=== PATIENT | male | born 1965 | race Caucasian/White ===

== ENCOUNTER 2019-12-22 22:27 | Inpatient (IN) | payer OTHER ==
[~2019-12-22] VITALS: Ht 175.3 cm; Wt 86.2 kg
--- NOTE | 2019-12-22 22:38 | NUR ---
PT AAOX4. SINHALA SPEAKING. [id number] FROM HOME FOR RLQ ABD PAIN X THIS AM 5/10, NON RADIATING. PLACED ON MONITOR AND PULSE OX. VSS.
--- NOTE | 2019-12-22 22:42 | NUR ---
RESIDENT INSPECTOR AT BEDSIDE FOR LABS AND URINE
[2019-12-22] MEDS ORDERED: ONDANSETRON HCL/PF 4 MG/2 ML VIAL ONE (22:55)
[2019-12-22] MEDS ORDERED: MORPHINE SULFATE INJ 4 MG/ML DISP.SYRIN ONE (22:56)
[2019-12-22] MEDS ORDERED: IV NS 0.9% 1,000 ML BAG IV ONE (23:00)
[2019-12-22] MEDS ORDERED: ONDANSETRON HCL/PF 4 MG/2 ML VIAL IVP ONE (23:00)
[2019-12-22] MEDS ORDERED: MORPHINE SULFATE INJ 2 MG/ML DISP.SYRIN IV ONE (23:00)
[2019-12-22 23:01] LABS: BASOPHILS # (AUTO) 0.1 /CMM (0.0-0.2); BASOPHILS % (AUTO) 0.6 % (0.0-2.0); EOSINOPHILS % (AUTO) 0.3 % (0.0-6.0); HEMATOCRIT 42 % (39-51); LYMPHOCYTES # (AUTO) 2.1 /CMM (0.8-4.8); LYMPHOCYTES % (AUTO) 18.2 % (20.0-44.0); MEAN CORPUSCULAR HGB CONC 33 g/dl (31.0-36.0); MEAN CORPUSCULAR VOLUME 94 fL (80-96); MONOCYTES # (AUTO) 0.3 /CMM (0.1-1.30); MONOCYTES % (AUTO) 2.9 % (2.0-12.0); NEUTROPHILS # (AUTO) 9.2 /CMM (1.8-8.9); PLATELET COUNT (AUTO) 267 /CMM (150-450); RED BLOOD CELL COUNT(AUTO) 4.48 MIL/uL (4.5-6.0); WHITE BLOOD COUNT (AUTO) 11.8 K/uL (4.3-11.0)
[2019-12-22 23:04] LABS: APPEARANCE,URINE Clear (CLEAR); BILIRUBIN,URINE Negative (NEGATIVE); BLOOD, URINE Negative Ery/uL (NEGATIVE); COLOR,URINE Yellow (YELLOW); KETONES,URINE 15 (NEGATIVE); LEUKOCYTE ESTERASE ,URINE Negative (NEGATIVE); NITRITE, URINE Negative (NEGATIVE); PROTEIN,URINE 30 mg/dl (NEGATIVE); UGLUCOSE 500 MG/DL mg/dL (NEGATIVE)
[2019-12-22 23:13] LABS: CALCIUM, SERUM 9.4 mg/dL (8.5-10.1); CARBON DIOXIDE 27 mmol/L (21-32); CHLORIDE 102 mmol/L (98-107); CREATININE 1.1 mg/dL (0.6-1.3); GLUCOSE 198 mg/dL (74-106); POTASSIUM 3.7 mmol/L (3.5-5.1); SODIUM SERUM 140 mmol/L (136-145); UREA NITROGEN, BLOOD 16 mg/dL (7-18)
[2019-12-22 23:18] LABS: BACTERIA,URINE Rare /HPF (None Seen); HYALINE CASTS, URINE Moderate /LPF (None Seen); MUCUS,URINE Many /LPF (None Seen); RBC,URINE NONE SEEN /HPF (0-2); WBC,URINE NONE SEEN /HPF (0-3)
[2019-12-22 23:22] LABS: ALANINE AMINOTRANSFERASE 41 U/L (12-78); ALKALINE PHOSPHATASE 71 U/L (46-116); ASPARTATE AMINOTRANSFERASE 18 U/L (15-37); BILIRUBIN,DIRECT 0.2 mg/dL (0.0-0.2); BILIRUBIN,TOTAL 0.5 mg/dL (0.2-1.0); LIPASE 70 U/L (73-393); TOTAL PROTEIN, SERUM 7.6 g/dL (6.4-8.2)
--- NOTE | 2019-12-22 23:26 | NUR ---
BROUGHT TO CT
--- NOTE | 2019-12-23 00:08 | NUR ---
DR. DANIELSON SPEAKING WITH DR. NUÑEZ
[2019-12-23] MEDS ORDERED: PIPERACILLIN /TAZOBACTAM 3.375 G VIAL IV ONE (00:10)
[2019-12-23] MEDS ORDERED: PIPERACILLIN /TAZOBACTAM 3.375 G in IV D5W 50 ML IV ONE (00:30)
--- NOTE | 2019-12-23 00:35 | NUR ---
SPEAKING TO REGARDING PT STAYING FOR APPENDICITIS
[2019-12-23] MEDS ORDERED: SITA1TAB6 PO ×2 (00:58→02:53)
[2019-12-23] MEDS ORDERED: ENAL5TAB PO (01:00)
[2019-12-23] MEDS ORDERED: MELO-105 PO (01:00)
--- NOTE | 2019-12-23 01:37 | NUR ---
BED ASSIGNMENT 320-1
--- NOTE | 2019-12-23 02:39 | NUR ---
REPORT GIVEN TO SHALOM العراقي FOR SERVANDO
[2019-12-23 02:50] VITALS: BP 151/84
--- NOTE | 2019-12-23 02:53 | NUR ---
SPOKE TO PATIENT'S . PT TAKES "JAUNMET 15MG 2000MG" UNKNOWN TIME
[2019-12-23] MEDS ORDERED: ONDANSETRON HCL/PF 4 MG/2 ML VIAL IV PRN (03:30)
[2019-12-23] MEDS ORDERED: HYDROCODONE/APAP 5/325MG 1 EACH TABLET PO PRN (03:30)
[2019-12-23] MEDS ORDERED: Potassium Chloride 10 MEQ in IV D5/0.45 NACL 1,000 ML IV PRN (03:30)
[2019-12-23] MEDS ORDERED: ACETAMINOPHEN 325 MG TABLET PO PRN (03:30)
[2019-12-23] MEDS ORDERED: HYDROMORPHONE 1 MG/1 ML DISP.SYRIN IV PRN ×2 (03:30→17:00)
--- NOTE | 2019-12-23 04:00 | NUR ---
MS JOURNEYMAN ELECTRICIAN NOTE: Received report from ED nurse, Wang. Patient was transferred to the unit via wheelchair. Patient AOx4. On room air; O2 Sat 95%. No SOB, breathing unlabored and equal. Patient's skin is intact. Noted IV access on right AC, 18 gauge. IV access flushes well, patent, no redness, or infiltration. Patient ambulates well, gait WNL. Oriented patient to room and educated patient on how to use the call light. Safety precaution in place, bed is locked, side rails x2 are up, alarm is on, and call light is within reach.
[2019-12-23] MEDS ORDERED: Potassium Chloride 20 MEQ in IV D5/0.45 NACL 1,000 ML IV PRN (06:30)
--- NOTE | 2019-12-23 06:50 | NUR ---
MS RN CLOSING NOTE: Patient in bed sleeping comfortably but easily arousable. Showed no signs of pain or distress. Breathing well on room air. No SOB. Breathing unlabored and equal. Will endorse to next shift.
--- NOTE | 2019-12-23 07:03 | NUR ---
MS RN NOTES RECEIVED PT IN BED AWAKE AT THIS TIME. A/O X4. SOMALI AND GUYANESE SPEAKING. PT ABLE TO MAKE NEEDS KNOWN. NO SOB NOTED. RESPIRATIONS EVEN AND UNLABORED. NO S/S OF ANY ACUTE DISTRESS NOTED. NO C/O PAIN AT THIS TIME. IV ACCESS IN RAC G#18, INTACT AND PATENT. SAFETY PRECAUTIONS IN PLACE. BED IN LOWEST LOCKED POSITION, SIDE RAILS UP X2. HOB ELEVATED TO SEMI FOWLERS POSITION, CALL LIGHT WITHIN REACH. WILL CONTINUE TO MONITOR
--- NOTE | 2019-12-23 07:52 | NUR ---
RECEIVED TELEPHONE ORDERS FROM DR NUÑEZ. PER DR NUÑEZ, PT IS SCHEDULED FOR LAPAROSCOPIC APPENDECTOMY POSSIBLE OPEN EXPLORATORY LAPAROTOMY. ORDERS READ BACK AND CARRIED OUT. CONSENT FOR PROCEDURE, BLOOD TRANSFUSION AND ANESTHESIA SIGNED BY PATIENT AND FILED IN CHART. WILL CONTINUE TO MONITOR
[2019-12-23] MEDS ORDERED: FENO145T21 PO (07:58)
[2019-12-23] MEDS ORDERED: ASPI-1152 PO (07:58)
[2019-12-23] MEDS ORDERED: ROSU40TA23 PO (07:58)
[2019-12-23 08:00] VITALS: BP 104/50
[2019-12-23] MEDS ORDERED: DEXTROSE 50%-WATER 50 ML DISP.SYRIN IV PRN (08:00)
[2019-12-23] MEDS ORDERED: CLONIDINE HCL 0.1 MG TABLET PO PRN (08:00)
[2019-12-23] MEDS ORDERED: PIPERACILLIN /TAZOBACTAM 3.375 G in IV D5W 50 ML IV SCH (08:00)
[2019-12-23] MEDS ORDERED: IV NS 0.9% 500 ML IV ONE (08:00)
[2019-12-23] MEDS: MELOXICAM 7.5 MG TABLET PO SCH ×2 (09:00→09:47)
[2019-12-23] MEDS: LINAGLIPTIN 5 MG TABLET PO SCH ×2 (09:00→09:47)
[2019-12-23] MEDS: NICOTINE PATCH (21MG) 21 MG PATCH.TD24 TD SCH ×2 (09:00→09:47)
[2019-12-23] MEDS: ENALAPRIL MALEATE (5 MG) 5 MG TABLET PO SCH (09:00)
--- NOTE | 2019-12-23 09:00 | NUR ---
PT IS ON NPO STATUS DUE TO SCHEDULED SURGERY. MOBIC 7.5MG PO DAILY, TRADJENTA 5MG PO DAILY AND NICODERM 21MG PATCH TP DAILY RETURNED. WILL CONTINUE TO MONITOR
[2019-12-23] MEDS ORDERED: PIPERACILLIN /TAZOBACTAM 3.375 G in IV D5W 100 ML IV SCH (10:00)
[2019-12-23] MEDS ORDERED: LIDOCAINE 1% INJ 50 ML MDV IJ ONE (11:57)
[2019-12-23] MEDS ORDERED: BUPIVACAINE MPF 0.5% W/EPI INJ 30 ML VIAL ONE (11:57)
[2019-12-23] MEDS: INSULIN REGULAR, HUMAN 100 UNIT/ML 3 ML VIAL SQ PRN (12:13)
[2019-12-23] MEDS: BLOOD SUGAR DIAGNOSTIC 1 EACH STRIP VI SCH ×3 (12:14→21:22)
--- NOTE | 2019-12-23 13:02 | NUR ---
PT TRANSPORTED OUT OF UNIT FOR LAPAROSCOPIC APPENDECTOMY POSSIBLE OPEN EXPLORATORY LAPAROTOMY PROCEDURE AT THIS TIME. WILL CONTINUE WITH PLAN OF CARE.
[2019-12-23] MEDS ORDERED: HYDROCODONE/APAP 10/325MG 1 EA TABLET PO PRN (17:00)
--- NOTE | 2019-12-23 17:00 | NUR ---
PATIENT TRANSPORTED BY BED TO UNIT AT THIS TIME FROM APPENDECTOMY AND LYSIS OF ADHESION PROCEDURE. POST SURGERY VITAL SIGNS, BP 112/56 HR 86, RR 18, T 98.8, SATURATION 96%. PER OR NURSE, PT HAS THREE SIDED WITH SKIN HANNAH WITH GAUZE SECURE WITH TAPE. SURGERY SIDE IN CLEAN AND DRY, NO SIGN OF BLEEDING NOTED. WILL CONTINUE TO MONITOR
[2019-12-23] MEDS: *INSULIN REGULAR(HUMULIN R)HUM 100 UNIT/ML VIAL SQ PRN ×2 (17:20→21:36)
[2019-12-23] MEDS: ZOSYN IVPB 3.375 G in IV D5W 50ml IV SCH ×2 (18:55→23:07)
--- NOTE | 2019-12-23 19:08 | NUR ---
MS RN CLOSING NOTES PT AWAKE IN BED AT THIS TIME. PT REMAINED STABLE THROUGHOUT SHIFT. PT KEPT CLEAN AND DRY. ALL CARE, NEEDS, MEDICATIONS AND WOUND TREATMENT ADMINISTERED ANTICIPATED PER ORDER. PT REPOSITIONED Q2HRS, PRN AND PER PROTOCOL. ASPIRATION AND SAFETY PRECAUTIONS IN PLACE AND MAINTAINED AT ALL TIMES. BED IN LOWEST LOCKED POSITION, SIDE RAILS UP X2, HOB ELEVATED TO SEMI FOWLERS POSITION, CALL LIGHT WITHIN REACH. WILL ENDORSE TO [employer]ER AUTOMOTIVE NURSE FOR SERVANDO
--- NOTE | 2019-12-23 19:35 | NUR ---
MS RN NOTES PATIENT IS LAYING IN BED. A/O X4. ON RA, NO SOB/ ACUTE RESPIRATORY DISTRESS NOTED. IV IN R AC#18G IS PATENT AND INTACT. APPEARS COMFORTABLE/ NO COMPLAINTS OF PAIN AT THE MOMENT. BED IS IN LOWEST LOCKED POSITION WITH SIDE RAILS UP X2, SEMI FOWLERS. CALL LIGHT IS WITHIN REACH. WILL CONTINUE TO MONITOR.
[2019-12-23 20:00] VITALS: BP 112/84
--- NOTE | 2019-12-23 20:28 | NUR ---
ADVANCED PT'S DIET FROM NPO TO CLEAR LIQUIDS POST SURGERY PER DOCTOR NUÑEZ'S ORDER. WILL CONTINUE TO MONITOR
[2019-12-24] MEDS: IV LR 1000 ML 1,000 ML IV PRN (03:16)
[2019-12-24] MEDS: ZOSYN IVPB 3.375 G in IV D5W 50ml IV SCH ×3 (05:12→17:28)
--- NOTE | 2019-12-24 06:23 | NUR ---
MS RN CLOSE NOTES PATIENT IS LAYING IN BED. A/O X4. ON RA, NO SOB/ ACUTE RESPIRATORY DISTRESS NOTED. IV IN R AC #18G IS PATENT AND INTACT RUNNING LACTATED RINGERS @ 150MLS/HR. ALL DUE ANTIBIOTICS GIVEN. ALL ACCUCHECKS DONE. PATIENT IS AMBULATORY. APPEARS COMFORTABLE/ NO COMPLAINTS OF PAIN AT THE MOMENT. BED IS IN LOWEST LOCKED POSITION WITH SIDE RAILS UP X2, SEMI FOWLERS. CALL LIGHT IS WITHIN REACH. WILL ENDORSE TO AM NURSE.
[2019-12-24] MEDS: BLOOD SUGAR DIAGNOSTIC 1 EACH STRIP VI SCH ×4 (06:30→21:26)
[2019-12-24] MEDS: INSULIN REGULAR, HUMAN 100 UNIT/ML 3 ML VIAL SQ PRN ×3 (06:31→17:33)
[2019-12-24 06:42] LABS: CALCIUM, SERUM 8.7 mg/dL (8.5-10.1); CREATININE 0.9 mg/dL (0.6-1.3); POTASSIUM 3.7 mmol/L (3.5-5.1)
[2019-12-24 07:01] LABS: BASOPHILS % (AUTO) 0.1 % (0.0-2.0); HEMATOCRIT 35 % (39-51); HEMOGLOBIN 11.4 g/dL (13.5-17.5); LYMPHOCYTES # (AUTO) 2.1 /CMM (0.8-4.8); LYMPHOCYTES % (AUTO) 14.1 % (20.0-44.0); MEAN CORPUSCULAR HGB CONC 33 g/dl (31.0-36.0); MEAN CORPUSCULAR VOLUME 93 fL (80-96); MONOCYTES # (AUTO) 0.7 /CMM (0.1-1.30); MONOCYTES % (AUTO) 4.8 % (2.0-12.0); NEUTROPHILS # (AUTO) 12.1 /CMM (1.8-8.9); PLATELET COUNT (AUTO) 201 /CMM (150-450); RED BLOOD CELL COUNT(AUTO) 3.75 MIL/uL (4.5-6.0); WHITE BLOOD COUNT (AUTO) 14.9 K/uL (4.3-11.0)
--- NOTE | 2019-12-24 07:30 | NUR ---
PATIENT RECEIVED RESTING COMFORTABLY IN BED. NO S/S OR C/O PAIN OR DISTRESS NOTED. SIDERAILS UP X2, CALL LIGHT LEFT WITHIN REACH. WILL CONTINUE PLAN OF CARE.
[2019-12-24 08:00] VITALS: BP 113/71
[2019-12-24] MEDS: NICOTINE PATCH (21MG) 21 MG PATCH.TD24 TD SCH (08:15)
[2019-12-24] MEDS: LINAGLIPTIN 5 MG TABLET PO SCH (08:15)
[2019-12-24] MEDS: ENALAPRIL MALEATE (5 MG) 5 MG TABLET PO SCH (08:16)
[2019-12-24] MEDS: PANTOPRAZOLE 40 MG TABLET.DR PO SCH (08:16)
[2019-12-24] MEDS: MELOXICAM 7.5 MG TABLET PO SCH (08:17)
[2019-12-24] MEDS: METOCLOPRAMIDE HCL 10 MG/2 ML VIAL IV SCH ×3 (10:18→20:05)
[2019-12-24 16:00] VITALS: BP 118/64
--- NOTE | 2019-12-24 18:44 | NUR ---
CHANGE OF SHIFT REPORT PT RESTING COMFORTABLY IN BED. NO S/S OR C/O PAIN OR DISTRESS NOTED. SIDE RAILS UP X2, CALL LIGHT LEFT WITHIN REACH. PT KEPT CLEAN, DRY, AND COMFORTABLE. NO SIGNIFICANT CHANGES SINCE PREVIOUS SHIFT. WILL GIVE REPORT TO JULIANO العراقي.
--- NOTE | 2019-12-24 19:30 | NUR ---
MS RN OPEN NOTES PATIENT IS SITTING IN BED. A/O X4. ON RA, NO SOB/ ACUTE RESPIRATORY DISTRESS NOTED. APPEARS COMFORTABLE/ NO COMPLAINTS OF PAIN AT THE MOMENT. BED IS IN LOWEST LOCKED POSITION WITH ISDE RAILS UP X2 SEMIFOWLERS. CALL LIGHT IS WITHIN REACH. WILL CONTINUE TO MONITOR.
[2019-12-24 20:21] VITALS: BP 127/73
[2019-12-25] MEDS: ZOSYN IVPB 3.375 G in IV D5W 50ml IV SCH ×3 (00:16→12:40)
[2019-12-25] MEDS: METOCLOPRAMIDE HCL 10 MG/2 ML VIAL IV SCH ×3 (02:35→15:15)
[2019-12-25] MEDS: IV LR 1000 ML 1,000 ML IV PRN (05:13)
--- NOTE | 2019-12-25 06:15 | NUR ---
MS RN CLOSE NOTES PATIENT IS LAYING IN BED. A/O X4. STABLE ON RA, NO SOB/ ACUTE RESPIRATORY DISTRESS NOTED. IV IN R AC #18G IS PATENT AND INTACT RUNNING LR @ 75MLS/HR. PATIENT IS AMBULATORY. ALL DUE ANTIBIOTICS GIVEN. ALL ACCUCHECKS DONE. APPEARS COMFORTABLE/ NO COMPLAINTS OF PAIN AT THE MOMENT. BED IS IN LOWEST LOCKED POSITION WITH SIDE RAILS UP X2, SEMI FOWLERS. CALL LIGHT IS WITHIN REACH. WILL ENDORSE TO AM NURSE.
[2019-12-25] MEDS: BLOOD SUGAR DIAGNOSTIC 1 EACH STRIP VI SCH ×3 (06:30→17:48)
[2019-12-25] MEDS: INSULIN REGULAR, HUMAN 100 UNIT/ML 3 ML VIAL SQ PRN ×3 (06:32→17:47)
[2019-12-25 07:14] LABS: BASOPHILS % (AUTO) 0.3 % (0.0-2.0); EOSINOPHILS % (AUTO) 0.3 % (0.0-6.0); HEMATOCRIT 38 % (39-51); HEMOGLOBIN 12.3 g/dL (13.5-17.5); LYMPHOCYTES # (AUTO) 1.5 /CMM (0.8-4.8); LYMPHOCYTES % (AUTO) 12.2 % (20.0-44.0); MEAN CORPUSCULAR HGB CONC 33 g/dl (31.0-36.0); MEAN CORPUSCULAR VOLUME 92 fL (80-96); MONOCYTES # (AUTO) 0.4 /CMM (0.1-1.30); MONOCYTES % (AUTO) 3.5 % (2.0-12.0); NEUTROPHILS # (AUTO) 10.5 /CMM (1.8-8.9); NEUTROPHILS % (AUTO) 83.7 % (43.0-81.0); PLATELET COUNT (AUTO) 245 /CMM (150-450); RED BLOOD CELL COUNT(AUTO) 4.09 MIL/uL (4.5-6.0); WHITE BLOOD COUNT (AUTO) 12.6 K/uL (4.3-11.0)
--- NOTE | 2019-12-25 07:30 | NUR ---
RN OPEN NOTES PATIENT IS A/O X 4. CALM AND COOPERATIVE WITH NO SIGNS OFDISTRESS IN ROOM AIR. NO COMPLAINTS OF PAIN AT THE MOMENT. SAFETY MEASURES ARE APPLIED, BED IS IN LOWEST LOCKED POSITION WITH SIDE RAILS UP X2 FOR SAFETY. CALL LIGHT IS WITHIN REACH. WILL CONTINUE TO MONITOR.
[2019-12-25 07:51] LABS: CALCIUM, SERUM 8.9 mg/dL (8.5-10.1); CREATININE 0.8 mg/dL (0.6-1.3); MAGNESIUM 2.2 mg/dL (1.8-2.4); POTASSIUM 3.4 mmol/L (3.5-5.1)
[2019-12-25 08:00] VITALS: BP 128/76
[2019-12-25] MEDS: ENALAPRIL MALEATE (5 MG) 5 MG TABLET PO SCH (08:37)
[2019-12-25] MEDS: NICOTINE PATCH (21MG) 21 MG PATCH.TD24 TD SCH (08:37)
[2019-12-25] MEDS: LINAGLIPTIN 5 MG TABLET PO SCH (08:37)
[2019-12-25] MEDS: PANTOPRAZOLE 40 MG TABLET.DR PO SCH (08:37)
[2019-12-25] MEDS: MELOXICAM 7.5 MG TABLET PO SCH (08:41)
[2019-12-25] MEDS ORDERED: AMOX-430 PO (08:57)
[2019-12-25] MEDS ORDERED: HYDR-4384 PO (08:57)
[2019-12-25] MEDS ORDERED: POTASSIUM CHLORIDE 20 MEQ TAB.PRT.SR PO ONE (10:30)
[2019-12-25 16:00] VITALS: BP 131/77
--- NOTE | 2019-12-25 19:45 | NUR ---
DC NOTES PATIENT IS STABLE AND IMPROVED. EDUCATED AND INFORMED PATIENT TO CONTINUE WITH MEDICATION, FOLLOW UP WITH PHYSICIAN AND RETURN TO THE ER IN CASE OF AN EMERGENCY. VERBALIZE UNDERSTANDING. LIST OF BELONGINGS WERE VERIFIED AND SIGNED BY PATIENT. PHOTOS OF SKIN WERE TAKEN FOR DISCHARGE. PATIENT WAS ABLE TO AMBULATE WITH A STEADY GAIT WITH NO COMPLICATIONS PICKED UP BY . Addendum: 12/25/19 at 2025 by ROBE BRICE RN DC NOTES PATIENT IS STABLE AND IMPROVED. EDUCATED AND INFORMED PATIENT TO CONTINUE WITH MEDICATION, FOLLOW UP WITH PHYSICIAN AND RETURN TO THE ER IN CASE OF AN EMERGENCY. VERBALIZE UNDERSTANDING. LIST OF BELONGINGS WERE VERIFIED AND SIGNED BY PATIENT. PHOTOS OF SKIN WERE TAKEN FOR DISCHARGE. COMPLAINT OF NO PAIN. IV WAS REMOVED AND PUT PRESSURE OVER IT AND NO SIGNS OF BLEEDING ON THE IV REMOVAL AND SECURED WITH TAPE. PATIENT WAS WALKED TO THE [facility] BY BELL CLERK NURSE SHALOM.PATIENT WAS ABLE TO AMBULATE WITH A STEADY GAIT WITH NO COMPLICATIONS PICKED UP BY .
[2019-12-25] MEDS ORDERED: CIPROFLOXACIN HCL 500 MG TABLET PO SCH (21:00)
[2019-12-25] MEDS ORDERED: METRONIDAZOLE 500 MG TABLET PO SCH (21:00)
== END 2019-12-25 19:34 | disposition home or self-care (01) | DRG 233 ==
LOC: ER 22:35 → MED 12-23 01:48
PROVIDERS: ADMIT Internal Medicine; ATTEND Internal Medicine
PROC: 0DTJ4ZZ Resection of Appendix, Percutaneous Endoscopic Approach (ICD-10-PCS; principal; 2019-12-23)
DX: K35.33 Acute appendicitis with perforation, localized peritonitis, and gangrene, with abscess (principal); E11.9 Type 2 diabetes mellitus without complications; I10 Essential (primary) hypertension; K66.0 Peritoneal adhesions (postprocedural) (postinfection); Z79.82 Long term (current) use of aspirin; Z79.84 Long term (current) use of oral hypoglycemic drugs; Z83.3 Family history of diabetes mellitus; Z82.49 Family history of ischemic heart disease and other diseases of the circulatory system; I70.0 Atherosclerosis of aorta; Z72.0 Tobacco use; K76.0 Fatty (change of) liver, not elsewhere classified; K40.20 Bilateral inguinal hernia, without obstruction or gangrene, not specified as recurrent; K56.7 Ileus, unspecified
CPT/HCPCS: 36415; 71045-TC; 80048-TC; 80076-TC; 81000-TC; 82962-TC; 83690-TC; 83735-TC; 84484-TC; 85025-TC; 85730-TC; 86850-TC; 87070-TC; 87075-TC; 87081-TC; 87186-TC; 88304-TC; G0378; J1100; J1815; J1885; J2270; J2405; J2543; J2704; J2765; J3480; J3490; J7030; J7060; J7120